=== PATIENT | male | born 1940 | race Caucasian/White ===

== ENCOUNTER → 2017-10-04 | Outpatient (CLI) | payer MEDICARE ==
[~2017-10-04] MED LIST: REGADENOSON 0.4 MG/5 ML SYRINGE ONE
== END ==
LOC: CFH 07:21
PROVIDERS: ATTEND Internal Medicine Cardiovascular Disease
DX: Z01.818 Encounter for other preprocedural examination (principal)
CPT/HCPCS: 78452; 93017; A9502; J2785

== ENCOUNTER → 2017-11-05 | Outpatient (CLI) | payer MEDICARE ==
[~2017-11-05] MED LIST changes: +ALLO300T PO; +ASPI-621 PO; +FINA5TAB4 PO; +FURO-93 PO; +GEMF600T3 PO; +GLUC15006 PO; +LEVO75TA5 PO; +LOSA25TA5 PO; +MULT-516 PO; +POTA10TA5 PO; -REGADENOSON 0.4 MG/5 ML SYRINGE ONE; +SITA1TBM4 PO; +TRIA1TAB5 PO; +UBID100C19 PO
[2017-11-05 10:35] LABS: BASOPHILS # (AUTO) 0.03 x10^3/uL (0-0.1); BASOPHILS % (AUTO) 0 % (0-1); EOSINOPHILS # (AUTO) 0.17 x10^3/uL (0-0.4); EOSINOPHILS % (AUTO) 3 % (1-7); LYMPHOCYTES # (AUTO) 1.69 x10^3/uL (1-3.4); LYMPHOCYTES % (AUTO) 25 % (22-44); MD NO; MEAN CORPUSCULAR HEMOGLOBIN 32.9 pg (27.5-34.5); MEAN CORPUSCULAR HGB CONC 34.2 g/dL (33.2-36.2); MEAN CORPUSCULAR VOLUME 96.3 fL (81-97); MEAN PLATELET VOLUME 6.9 fL (7.4-10.4); MONOCYTES # (AUTO) 0.54 x10^3/uL (0.2-0.8); MONOCYTES % (AUTO) 8 % (2-9); NEUTROPHILS # (AUTO) 4.33 x10^3/uL (1.8-6.8); NEUTROPHILS % (AUTO) 64 % (42-75); PLATELET COUNT 297 x10^3/uL (130-400); RED BLOOD COUNT 3.99 x10^6/uL (4.38-5.82); RED CELL DISTRIBUTION WIDTH 15.3 % (9.4-14.8)
[2017-11-05 10:50] LABS: ALANINE AMINOTRANSFERASE 39 U/L (12-78); ALBUMIN 3.6 g/dL (3.4-5.0); ANION GAP 9 mmol/L (5-15); CALCIUM 8.9 mg/dL (8.5-10.1); CHLORIDE 103 mmol/L (98-107); CREATININE 1.86 mg/dL (0.7-1.3)
[2017-11-05 10:56] LABS: ALKALINE PHOSPHATASE 75 U/L (45-117); BILIRUBIN,TOTAL 0.5 mg/dL (0.2-1.0); TOTAL PROTEIN 7.5 g/dL (6.4-8.2)
== END | disposition home or self-care (01) ==
LOC: STAR 09:10
PROVIDERS: ATTEND Surgery
DX: Z01.818 Encounter for other preprocedural examination (principal); Z96.612 Presence of left artificial shoulder joint; D37.4 Neoplasm of uncertain behavior of colon
CPT/HCPCS: 36415; 71046; 80053; 82378; 85025; 93005

== ENCOUNTER 2017-11-13 05:51 | Inpatient (IN) | payer MEDICARE ==
[2017-11-05 09:41] VITALS: BP 150/90
[~2017-11-13] VITALS: Ht 160 cm; Wt 108.0 kg
[2017-11-13] MEDS ORDERED: LACTATED RINGERS 1,000 ML IV SCH (06:44)
[2017-11-13] MEDS ORDERED: BUPIVACAINE/PF 0.5% ONE (07:13)
[2017-11-13] MEDS ORDERED: FENTANYL PF 250 MCG/5ML ONE (07:26)
[2017-11-13] MEDS ORDERED: MIDAZOLAM 1 MG/ML, 2ML ONE (07:26)
[2017-11-13] MEDS ORDERED: ACETAMINOPHEN 500 MG TABLET ONE (07:59)
[2017-11-13] MEDS ORDERED: GABAPENTIN 300 MG CAPSULE ONE (07:59)
[2017-11-13] MEDS ORDERED: ROCURONIUM 10MG/ML,5ML ONE (08:04)
[2017-11-13] MEDS ORDERED: SUCCINYLCHOLINE 20 MG/ML, 10ML ONE (08:04)
[2017-11-13] MEDS ORDERED: GLYCOPYRROLATE 0.2MG/1ML, 5ML ONE (08:04)
[2017-11-13] MEDS ORDERED: ONDANSETRON 2MG/ML, 2ML ONE (08:04)
[2017-11-13] MEDS ORDERED: CEFOTETAN 2 GM ONE (08:04)
[2017-11-13] MEDS ORDERED: PROPOFOL 10 MG/ML, 20ML ONE (08:04)
[2017-11-13] MEDS ORDERED: NEOSTIGMINE 1 MG/ML, 10ML ONE (08:04)
[2017-11-13] MEDS ORDERED: GABAPENTIN 300 MG CAPSULE PO ONE (08:30)
[2017-11-13] MEDS ORDERED: ACETAMINOPHEN 500 MG TABLET PO ONE (08:30)
[2017-11-13] MEDS ORDERED: HYDROmorphone 1 MG/ML, 1ML IV PRN (09:30)
[2017-11-13] MEDS ORDERED: PROMETHAZINE 25 MG/ML, 1ML IV PRN (09:30)
[2017-11-13] MEDS ORDERED: ONDANSETRON 2MG/ML, 2ML IVPush PRN (09:30)
[2017-11-13] MEDS ORDERED: hydrALAzine 20 MG/ML, 1ML IV PRN (09:30)
[2017-11-13] MEDS ORDERED: OXYcodone 5 MG/5 ML ORAL.SOL UDC PO PRN (09:30)
[2017-11-13] MEDS ORDERED: KETOROLAC 30 MG/1 ML IV PRN (09:30)
[2017-11-13] MEDS ORDERED: FENTANYL PF 100 MCG/2ML IV PRN (09:30)
[2017-11-13] MEDS ORDERED: METOCLOPRAMIDE 5 MG/ML, 2ML IV PRN (09:30)
[2017-11-13] MEDS ORDERED: MEPERIDINE/PF 25MG/0.5ML IVPush PRN (09:30)
[2017-11-13] MEDS ORDERED: ALBUTEROL SULFATE 2.5 MG/3 ML NPPB PRN (09:30)
[2017-11-13] MEDS ORDERED: LABETALOL 5MG/ML, 20ML ONE (10:08)
[2017-11-13] MEDS ORDERED: morphine SULFATE 10 MG/ML, 1ML ONE (10:09)
[2017-11-13] MEDS: morphine SULFATE 10 MG/ML, 1ML IVPush PRN ×4 (10:12→10:58)
[2017-11-13] MEDS: LABETALOL 5MG/ML, 20ML IV PRN ×4 (10:13→10:44)
[2017-11-13] MEDS ORDERED: OXYcodone 5 MG/5 ML ORAL.SOL UDC ONE (10:27)
[2017-11-13 12:00] VITALS: BP 169/89
[2017-11-13] MEDS ORDERED: HYDROmorphone 1 MG/ML, 1ML IVPush PRN ×3 (13:00→15:23)
[2017-11-13] MEDS ORDERED: HALOPERIDOL 5 MG/ML IVPush PRN (13:00)
[2017-11-13] MEDS ORDERED: CALCIUM CARBONATE 500 MG TAB.CHEW PO PRN (13:00)
[2017-11-13] MEDS ORDERED: ONDANSETRON 2MG/ML, 2ML IV PRN (13:00)
[2017-11-13] MEDS ORDERED: LORazepam 2 MG/ML, 1ML IVPush PRN (13:00)
[2017-11-13] MEDS ORDERED: LORazepam 1MG TABLET PO PRN (13:00)
[2017-11-13] MEDS ORDERED: DEXAMETHASONE 4 MG/ML, 1ML IVPush PRN (13:00)
[2017-11-13] MEDS ORDERED: DIPHENHYDRAMINE 50 MG/ML, 1ML IVPush PRN (13:00)
[2017-11-13] MEDS ORDERED: SCOPOLAMINE PATCH, 1.5MG PATCH.TD72 TD PRN (13:00)
[2017-11-13] MEDS ORDERED: OXYcodone IR 5MG TABLET PO PRN ×2 (13:00→15:21)
[2017-11-13] MEDS ORDERED: D5%-0.45NACL+KCL 20MEQ 1,000 ML IV SCH (13:30)
[2017-11-13] MEDS ORDERED: DIPHENHYDRAMINE 25 MG CAPSULE PO PRN (13:30)
[2017-11-13 13:56] VITALS: BP 137/81
[2017-11-13] MEDS: ACETAMINOPHEN 500 MG TABLET PO SCH ×2 (14:23→20:27)
[2017-11-13] MEDS: POTASSIUM CHLORIDE 10 MEQ TABLET.ER PO SCH (14:24)
[2017-11-13] MEDS: INSULIN REGULAR, HUMAN 100 UNITS/ML, 3ML HIGH DOSE SS SQ-INSULIN SCH ×2 (16:00→21:06)
[2017-11-13] MEDS ORDERED: INSULIN REGULAR 100 UNITS/ML, 3ML VIAL SQ-INSULIN ONE (16:30)
[2017-11-13] MEDS: POTASSIUM CHLORIDE 20 MEQ in LACTATED RINGERS 1,000 ML IV SCH (18:02)
[2017-11-13] MEDS: IBUPROFEN 800 MG TABLET PO SCH ×2 (18:09→21:02)
[2017-11-13 19:20] VITALS: BP 130/75
[2017-11-14 00:06] VITALS: BP 127/76
[2017-11-14] MEDS: ACETAMINOPHEN 500 MG TABLET PO SCH ×4 (02:01→19:59)
[2017-11-14 02:59] VITALS: BP 141/69
[2017-11-14 05:17] LABS: BASOPHILS # (AUTO) 0.03 x10^3/uL (0-0.1); BASOPHILS % (AUTO) 0 % (0-1); EOSINOPHILS # (AUTO) 0.14 x10^3/uL (0-0.4); EOSINOPHILS % (AUTO) 2 % (1-7); LYMPHOCYTES % (AUTO) 15 % (22-44); MD NO; MEAN CORPUSCULAR HEMOGLOBIN 32.3 pg (27.5-34.5); MEAN CORPUSCULAR HGB CONC 33.5 g/dL (33.2-36.2); MEAN CORPUSCULAR VOLUME 96.4 fL (81-97); MEAN PLATELET VOLUME 6.9 fL (7.4-10.4); MONOCYTES # (AUTO) 0.83 x10^3/uL (0.2-0.8); MONOCYTES % (AUTO) 9 % (2-9); NEUTROPHILS # (AUTO) 6.53 x10^3/uL (1.8-6.8); NEUTROPHILS % (AUTO) 74 % (42-75); PLATELET COUNT 283 x10^3/uL (130-400); RED BLOOD COUNT 3.46 x10^6/uL (4.38-5.82)
[2017-11-14 05:18] LABS: ANION GAP 9 mmol/L (5-15); CALCIUM 8.7 mg/dL (8.5-10.1); CHLORIDE 100 mmol/L (98-107); CREATININE 1.58 mg/dL (0.7-1.3)
[2017-11-14] MEDS: LEVOTHYROXINE 75 MCG TABLET PO SCH (06:19)
[2017-11-14] MEDS: INSULIN REGULAR, HUMAN 100 UNITS/ML, 3ML HIGH DOSE SS SQ-INSULIN SCH ×4 (06:21→20:58)
[2017-11-14 06:36] VITALS: BP 138/75
[2017-11-14] MEDS: POTASSIUM CHLORIDE 20 MEQ in LACTATED RINGERS 1,000 ML IV SCH ×2 (08:26→20:51)
[2017-11-14] MEDS: ALLOPURINOL 300 MG TABLET PO SCH (09:15)
[2017-11-14] MEDS: FINASTERIDE 5 MG TABLET PO SCH (09:15)
[2017-11-14] MEDS: IBUPROFEN 800 MG TABLET PO SCH ×3 (09:15→20:55)
[2017-11-14] MEDS: HEPARIN 5,000 UNITS/ML, 1ML SQ SCH ×2 (09:16→16:00)
[2017-11-14] MEDS: FUROSEMIDE 20 MG TABLET PO SCH (09:16)
[2017-11-14 13:13] VITALS: BP 139/73
[2017-11-14 18:58] VITALS: BP 130/74
[2017-11-15] MEDS: HEPARIN 5,000 UNITS/ML, 1ML SQ SCH ×4 (00:10→23:45)
[2017-11-15] MEDS: ACETAMINOPHEN 500 MG TABLET PO SCH ×4 (02:05→22:15)
[2017-11-15 03:34] VITALS: BP 124/73
[2017-11-15 05:01] LABS: BASOPHILS # (AUTO) 0.04 x10^3/uL (0-0.1); BASOPHILS % (AUTO) 0 % (0-1); EOSINOPHILS # (AUTO) 0.23 x10^3/uL (0-0.4); EOSINOPHILS % (AUTO) 2 % (1-7); LYMPHOCYTES % (AUTO) 10 % (22-44); MD NO; MEAN CORPUSCULAR HEMOGLOBIN 33.1 pg (27.5-34.5); MEAN CORPUSCULAR HGB CONC 34.1 g/dL (33.2-36.2); MEAN CORPUSCULAR VOLUME 97.1 fL (81-97); MEAN PLATELET VOLUME 6.8 fL (7.4-10.4); MONOCYTES # (AUTO) 0.82 x10^3/uL (0.2-0.8); MONOCYTES % (AUTO) 8 % (2-9); NEUTROPHILS # (AUTO) 8.51 x10^3/uL (1.8-6.8); NEUTROPHILS % (AUTO) 80 % (42-75); PLATELET COUNT 240 x10^3/uL (130-400); RED BLOOD COUNT 2.97 x10^6/uL (4.38-5.82); RED CELL DISTRIBUTION WIDTH 14.8 % (9.4-14.8)
[2017-11-15 05:12] LABS: ANION GAP 9 mmol/L (5-15); CALCIUM 8.4 mg/dL (8.5-10.1); CHLORIDE 103 mmol/L (98-107); CREATININE 1.61 mg/dL (0.7-1.3)
[2017-11-15] MEDS: INSULIN REGULAR, HUMAN 100 UNITS/ML, 3ML HIGH DOSE SS SQ-INSULIN SCH ×4 (06:11→21:00)
[2017-11-15] MEDS: LEVOTHYROXINE 75 MCG TABLET PO SCH (06:11)
[2017-11-15 07:31] VITALS: BP 122/71
[2017-11-15 08:23] LABS: CLOSTRIDIUM DIFFICILE ANTIGEN NEGATIVE; CLOSTRIDIUM DIFFICILE TOXIN NEGATIVE (Negative)
[2017-11-15] MEDS: POTASSIUM CHLORIDE 10 MEQ TABLET.ER PO SCH (08:42)
[2017-11-15] MEDS: FINASTERIDE 5 MG TABLET PO SCH (08:43)
[2017-11-15] MEDS: ALLOPURINOL 300 MG TABLET PO SCH (08:43)
[2017-11-15] MEDS: IBUPROFEN 800 MG TABLET PO SCH ×3 (08:43→21:00)
[2017-11-15] MEDS: FUROSEMIDE 20 MG TABLET PO SCH (10:16)
[2017-11-15] MEDS ORDERED: POTASSIUM CHLORIDE 20 MEQ PACKET PO SCH (11:00)
[2017-11-15] MEDS: POTASSIUM CHLORIDE 20 MEQ in LACTATED RINGERS 1,000 ML IV SCH ×2 (13:18→22:15)
[2017-11-15 13:42] VITALS: BP 123/74
[2017-11-15 19:45] VITALS: BP 103/60
[2017-11-15] MEDS ORDERED: POTASSIUM CHLORIDE 20 MEQ PACKET PO ONE (21:00)
[2017-11-16 01:55] VITALS: BP 121/73
[2017-11-16] MEDS: ACETAMINOPHEN 500 MG TABLET PO SCH ×4 (03:58→22:43)
[2017-11-16 05:11] LABS: BASOPHILS # (AUTO) 0.05 x10^3/uL (0-0.1); BASOPHILS % (AUTO) 1 % (0-1); EOSINOPHILS # (AUTO) 0.31 x10^3/uL (0-0.4); EOSINOPHILS % (AUTO) 3 % (1-7); LYMPHOCYTES # (AUTO) 1.51 x10^3/uL (1-3.4); LYMPHOCYTES % (AUTO) 17 % (22-44); MD NO; MEAN CORPUSCULAR HGB CONC 34.1 g/dL (33.2-36.2); MEAN CORPUSCULAR VOLUME 96.8 fL (81-97); MONOCYTES % (AUTO) 9 % (2-9); NEUTROPHILS # (AUTO) 6.45 x10^3/uL (1.8-6.8); NEUTROPHILS % (AUTO) 71 % (42-75); PLATELET COUNT 265 x10^3/uL (130-400); RED BLOOD COUNT 2.52 x10^6/uL (4.38-5.82); RED CELL DISTRIBUTION WIDTH 14.7 % (9.4-14.8)
[2017-11-16 05:18] LABS: ANION GAP 8 mmol/L (5-15); CALCIUM 8.5 mg/dL (8.5-10.1); CHLORIDE 102 mmol/L (98-107)
[2017-11-16] MEDS: LEVOTHYROXINE 75 MCG TABLET PO SCH (06:09)
[2017-11-16] MEDS: INSULIN REGULAR, HUMAN 100 UNITS/ML, 3ML HIGH DOSE SS SQ-INSULIN SCH ×4 (06:12→21:53)
[2017-11-16 06:57] VITALS: BP 121/75
[2017-11-16] MEDS: ALLOPURINOL 300 MG TABLET PO SCH (07:44)
[2017-11-16] MEDS: FINASTERIDE 5 MG TABLET PO SCH (07:46)
[2017-11-16] MEDS: FUROSEMIDE 20 MG TABLET PO SCH (07:46)
[2017-11-16] MEDS ORDERED: SODIUM CHLORIDE 0.9% 1,000 ML IV SCH (09:30)
[2017-11-16] MEDS: POTASSIUM CHLORIDE 20 MEQ TAB.ER.PRT PO SCH ×2 (10:23→21:54)
[2017-11-16 12:42] VITALS: BP 138/79
[2017-11-16] MEDS: POTASSIUM CHLORIDE 20 MEQ in LACTATED RINGERS 1,000 ML IV SCH (18:10)
[2017-11-16 18:49] VITALS: BP 139/75
[2017-11-17 02:46] VITALS: BP 157/86
[2017-11-17 04:44] LABS: BASOPHILS # (AUTO) 0.02 x10^3/uL (0-0.1); BASOPHILS % (AUTO) 0 % (0-1); EOSINOPHILS # (AUTO) 0.31 x10^3/uL (0-0.4); EOSINOPHILS % (AUTO) 3 % (1-7); LYMPHOCYTES # (AUTO) 1.38 x10^3/uL (1-3.4); LYMPHOCYTES % (AUTO) 15 % (22-44); MD NO; MEAN CORPUSCULAR HEMOGLOBIN 33.1 pg (27.5-34.5); MEAN CORPUSCULAR HGB CONC 34.2 g/dL (33.2-36.2); MEAN CORPUSCULAR VOLUME 96.8 fL (81-97); MEAN PLATELET VOLUME 6.6 fL (7.4-10.4); MONOCYTES % (AUTO) 10 % (2-9); NEUTROPHILS % (AUTO) 72 % (42-75); PLATELET COUNT 334 x10^3/uL (130-400); RED BLOOD COUNT 2.44 x10^6/uL (4.38-5.82); RED CELL DISTRIBUTION WIDTH 14.3 % (9.4-14.8)
[2017-11-17 04:51] LABS: ANION GAP 8 mmol/L (5-15); CHLORIDE 103 mmol/L (98-107)
[2017-11-17 04:52] LABS: CREATININE 1.34 mg/dL (0.7-1.3)
[2017-11-17] MEDS: ACETAMINOPHEN 500 MG TABLET PO SCH ×4 (05:49→23:50)
[2017-11-17] MEDS: LEVOTHYROXINE 75 MCG TABLET PO SCH (06:28)
[2017-11-17] MEDS: INSULIN REGULAR, HUMAN 100 UNITS/ML, 3ML HIGH DOSE SS SQ-INSULIN SCH ×4 (07:23→21:00)
[2017-11-17 08:10] VITALS: BP 168/87
[2017-11-17] MEDS: POTASSIUM CHLORIDE 20 MEQ in LACTATED RINGERS 1,000 ML IV SCH ×2 (08:34→23:02)
[2017-11-17] MEDS: FINASTERIDE 5 MG TABLET PO SCH (08:34)
[2017-11-17] MEDS: POTASSIUM CHLORIDE 20 MEQ TAB.ER.PRT PO SCH ×2 (08:34→21:17)
[2017-11-17] MEDS: ALLOPURINOL 300 MG TABLET PO SCH (08:34)
[2017-11-17] MEDS: FUROSEMIDE 20 MG TABLET PO SCH (08:34)
[2017-11-17 11:26] VITALS: BP 144/82
[2017-11-17 13:10] VITALS: BP 132/77
[2017-11-17 19:55] VITALS: BP 147/76
[2017-11-18 02:01] VITALS: BP 144/83
[2017-11-18] MEDS: LEVOTHYROXINE 75 MCG TABLET PO SCH (05:45)
[2017-11-18] MEDS: ACETAMINOPHEN 500 MG TABLET PO SCH ×2 (05:45→11:06)
[2017-11-18] MEDS: INSULIN REGULAR, HUMAN 100 UNITS/ML, 3ML HIGH DOSE SS SQ-INSULIN SCH ×2 (06:32→11:05)
[2017-11-18 07:44] VITALS: BP 146/82
[2017-11-18] MEDS: FINASTERIDE 5 MG TABLET PO SCH (08:49)
[2017-11-18] MEDS: POTASSIUM CHLORIDE 20 MEQ TAB.ER.PRT PO SCH (08:49)
[2017-11-18] MEDS: ALLOPURINOL 300 MG TABLET PO SCH (08:49)
[2017-11-18] MEDS: FUROSEMIDE 20 MG TABLET PO SCH (08:50)
[2017-11-18] MEDS: POTASSIUM CHLORIDE 20 MEQ in LACTATED RINGERS 1,000 ML IV SCH (13:28)
[2017-11-18 13:29] VITALS: BP 145/76
== END 2017-11-18 15:11 | disposition home health service (06) | DRG 330 ==
LOC: ORIP 05:51 → 4NOR 11:51 → DCLOUNGE 11-18 15:00
PROVIDERS: ADMIT Surgery; ATTEND Surgery
PROC: 0WQF4ZZ Repair Abdominal Wall, Percutaneous Endoscopic Approach (ICD-10-PCS; 2017-11-13)
PROC: 0DTF4ZZ Resection of Right Large Intestine, Percutaneous Endoscopic Approach (ICD-10-PCS; principal; 2017-11-13 08:00)
PROC: 5A09357 Assistance with Respiratory Ventilation, Less than 24 Consecutive Hours, Continuous Positive Airway Pressure (ICD-10-PCS; 2017-11-15)
DX: R19.09 Other intra-abdominal and pelvic swelling, mass and lump (principal); D62 Acute posthemorrhagic anemia; Z68.41 Body mass index [BMI] 40.0-44.9, adult; N17.9 Acute kidney failure, unspecified; E87.6 Hypokalemia; R33.9 Retention of urine, unspecified; E66.01 Morbid (severe) obesity due to excess calories; I10 Essential (primary) hypertension; I25.10 Atherosclerotic heart disease of native coronary artery without angina pectoris; G47.33 Obstructive sleep apnea (adult) (pediatric); K42.9 Umbilical hernia without obstruction or gangrene; M10.9 Gout, unspecified; E03.9 Hypothyroidism, unspecified; E11.40 Type 2 diabetes mellitus with diabetic neuropathy, unspecified; K63.5 Polyp of colon
CPT/HCPCS: 36415; 80048; 82962; 85025; 86850; 86900; 87324; 88307; 94660; J1644; J1815; J2250; J2405; J2704; J2710; J3010; J3480; J3490; J0330; J2270; J7030; J7120; S0074